=== PATIENT | female | born 1990 | race African-American/Black ===

== ENCOUNTER 2023-04-20 13:30 | Emergency (ER) | payer OTHER ==
[~2023-04-20] VITALS: Ht 170.2 cm; Wt 65.2 kg
[2023-04-20 13:31] VITALS: BP 117/74; TEMP 97.9; O2SAT 100
== END 2023-04-20 15:53 | disposition home or self-care (01) ==
LOC: M ED 13:30
DX: O26.891 Other specified pregnancy related conditions, first trimester (principal); R09.81 Nasal congestion; Z3A.00 Weeks of gestation of pregnancy not specified

== ENCOUNTER 2023-05-12 13:53 | Emergency (ER) | payer OTHER ==
[~2023-05-12] VITALS: Ht 170.2 cm; Wt 63.3 kg
[2023-05-12 15:08] LABS: HEMATOCRIT 33.3 % (36.0-47.0); HEMOGLOBIN 10.7 g/dl (12.0-15.5); MEAN CORPUSCULAR HEMOGLOBIN 26.3 pg (27.0-33.0); MEAN CORPUSCULAR HGB CONC 32.1 g/dl (32.0-36.5); MEAN CORPUSCULAR VOLUME 81.8 fl (80.0-96.0); PLATELET COUNT, AUTOMATED 245 10^3/uL (150-450); RED BLOOD COUNT 4.07 10^6/uL (4.00-5.40); WHITE BLOOD COUNT 4.7 10^3/uL (4.0-10.0)
[2023-05-12 15:17] LABS: APPEARANCE, URINE CLEAR (CLEAR); BACTERIA, URINE AUTO NEGATIVE (NEGATIVE); BILIRUBIN, URINE AUTO NEGATIVE (NEGATIVE); BLOOD, URINE BLOOD 1+ (NEGATIVE); COLOR, URINE YELLOW (YELLOW); GLUCOSE, URINE (UA) AUTO NEGATIVE (NEGATIVE); KETONE, URINE AUTO NEGATIVE (NEGATIVE); LEUKOCYTE ESTERASE, URINE AUTO NEGATIVE (NEGATIVE); MUCUS, URINE SMALL (NEGATIVE); NITRITE, URINE AUTO NEGATIVE (NEGATIVE); PROTEIN, URINE AUTO NEGATIVE (NEGATIVE); RBC, URINE AUTO 1 /HPF (0-3); SPECIFIC GRAVITY URINE AUTO 1.023 (1.002-1.035); SQUAMOUS EPITHELIAL CELL UR AU 2 /HPF (0-6); UROBILINOGEN, URINE AUTO 0.2 mg/dL (0.0-2.0); WBC, URINE AUTO 1 /HPF (0-3)
[2023-05-12 15:34] LABS: ATYPICAL LYMPH 2 % (0-5); LYMPHOCYTES 37 % (16-44); MONOCYTES 7 % (0-5); NEUTROPHILS 54 % (28-66)
[2023-05-12 15:36] LABS: PLATELET ESTIMATE NORMAL (NORMAL)
[2023-05-12 15:41] LABS: BLOOD UREA NITROGEN 5 MG/DL (9-23); CALCIUM LEVEL 8.8 MG/DL (8.5-10.1); CARBON DIOXIDE LEVEL 22 MMOL/L (20-31); CHLORIDE LEVEL 107 MMOL/L (98-107); CREATININE FOR GFR 0.62 MG/DL (0.55-1.30); GLOMERULAR FILTRATION RATE > 60.0 (>60); GLUCOSE, FASTING 81 MG/DL (60-100); POTASSIUM SERUM 3.8 MMOL/L (3.5-5.1); SODIUM LEVEL 139 MMOL/L (136-145)
[2023-05-12 19:58] LABS: Trichomonas vaginalis (AMP) NOT DETECTED (NEGATIVE)
[2023-05-12 20:05] VITALS: BP 134/79; TEMP 99.1; O2SAT 100
[2023-05-12 20:21] LABS: GC DNA AMPLIFICATION NEGATIVE (NEGATIVE)
== END 2023-05-12 20:06 | disposition home or self-care (01) ==
LOC: M ED 15:25
DX: O20.0 Threatened abortion (principal)

== ENCOUNTER 2023-09-25 16:35 | Outpatient (CLI) | payer OTHER ==
[~2023-09-25] VITALS: Ht 167.6 cm; Wt 76.2 kg
[2023-09-25 17:00] VITALS: BP 112/57; O2SAT 100
[2023-09-25] MEDS ORDERED: PRENTAB9 PO (17:25)
[2023-09-25] MEDS ORDERED: ACET500P3 PO (17:25)
[2023-09-25] MEDS ORDERED: HOME MED LIST COMPLETE! XX SCH (17:25)
[2023-09-25] MEDS ORDERED: diphenhydrAMINE 50MG/ML VIAL IM ONE (17:45)
[2023-09-25] MEDS ORDERED: LACTATED RINGER'S 1000 ML IV STA (17:45)
[2023-09-25] MEDS: LR 1,000 ML IV SCH (18:19)
[2023-09-25] MEDS: PROMETHAZINE 25MG/ML 1ML VIAL IV ONE (18:20)
[2023-09-25] MEDS: diphenhydrAMINE 50MG/ML VIAL IV ONE (18:28)
[2023-09-25 18:37] VITALS: BP 101/52
[2023-09-25 20:06] VITALS: BP 114/55
== END 2023-09-25 21:51 | disposition home or self-care (01) ==
LOC: M LDO 16:35
PROVIDERS: ATTEND Obstetrics & Gynecology
DX: O26.892 Other specified pregnancy related conditions, second trimester (principal); R51.9 Headache, unspecified; Z3A.27 27 weeks gestation of pregnancy
CPT/HCPCS: 59025; 96374; 96375; G0463; J1200; J2550

== ENCOUNTER 2023-11-28 20:43 | Outpatient (CLI) | payer OTHER ==
[~2023-11-28] VITALS: Ht 172.7 cm; Wt 80.5 kg
[~2023-11-28 20:43] MED LIST: ACET500P3 PO; PRENTAB9 PO
[2023-11-28 20:58] VITALS: BP 107/62
[2023-11-28] MEDS: FLUCONAZOLE 50MG TABLET PO ONE (22:21)
[2023-12-01] MEDS ORDERED: FLUCONAZOLE 50MG TABLET PO ONE (22:00)
== END 2023-11-28 23:00 | disposition home or self-care (01) ==
LOC: M LDO 20:43
PROVIDERS: ATTEND Obstetrics & Gynecology
DX: O23.593 Infection of other part of genital tract in pregnancy, third trimester (principal); O99.820 Streptococcus B carrier state complicating pregnancy; B37.9 Candidiasis, unspecified; Z3A.35 35 weeks gestation of pregnancy
CPT/HCPCS: 59025; 81001; 87086; G0463

== ENCOUNTER 2023-12-28 01:22 | Inpatient (IN) | payer OTHER ==
[~2023-12-28] VITALS: Ht 170.2 cm; Wt 81.0 kg
[2023-12-28] VITALS (13 sets, daily range): BP systolic 109–131; BP diastolic 53–72; O2SAT 100
[2023-12-28] MEDS: PENICILLIN G POTASSIUM 5 MU IV 5 MU in DEXTROSE 5% (D5W) MINI-BAG PLU 100 ML IV STA (01:46)
[2023-12-28 01:58] LABS: HEMATOCRIT 37.6 % (36.0-47.0); HEMOGLOBIN 12.7 g/dl (12.0-15.5); MEAN CORPUSCULAR HEMOGLOBIN 29.5 pg (27.0-33.0); MEAN CORPUSCULAR HGB CONC 33.8 g/dl (32.0-36.5); MEAN CORPUSCULAR VOLUME 87.2 fl (80.0-96.0); PLATELET COUNT, AUTOMATED 203 10^3/uL (150-450); RED BLOOD COUNT 4.31 10^6/uL (4.00-5.40)
[2023-12-28] MEDS ORDERED: HOME MED LIST COMPLETE! XX SCH (02:05)
[2023-12-28] MEDS ORDERED: ePHEDrine SULFATE 25 MG/5 ML(5MG/ML) SYRINGE IVP PRN (02:55)
[2023-12-28] MEDS ORDERED: FENTANYL/ROPIVACAINE/NACL BAG 100 ML EPIDURAL SCH (02:55)
[2023-12-28] MEDS ORDERED: NALOXONE INJ 0.4MG/1ML VIAL IV PRN (02:55)
[2023-12-28] MEDS ORDERED: EPIDURAL/PCA KEYS XX PRN (02:55)
[2023-12-28] MEDS ORDERED: ONDANSETRON 4MG 2ML VIAL IV PRN (02:55)
[2023-12-28] MEDS ORDERED: diphenhydrAMINE 50MG/ML VIAL IV PRN (02:55)
[2023-12-28] MEDS ORDERED: LR 500 ML IV PRN (02:55)
[2023-12-28 03:42] LABS: HEPATITIS C VIRUS ABY INDEX < 0.02 INDEX (<0.8)
[2023-12-28] MEDS: OXYTOCIN DRIP 30 UNITS in IV 1 EA IV PRN (03:44)
[2023-12-28] MEDS ORDERED: MOM 30ML SUSPENSION UDC PO PRN (03:50)
[2023-12-28] MEDS ORDERED: RHOGAM 300MCG (1500IU) INJ IM SCH (03:50)
[2023-12-28] MEDS ORDERED: IBUPROFEN 600MG TAB PO PRN (03:50)
[2023-12-28] MEDS ORDERED: METHYLERGONOVINE MALEATE 0.2MG/ML 1ML VIAL IM PRN (03:50)
[2023-12-28] MEDS ORDERED: ANUSOL HC CREAM 30GM TOP PRN (03:50)
[2023-12-28] MEDS ORDERED: ACETAMINOPHEN 325 MG TAB PO PRN (03:50)
[2023-12-28] MEDS ORDERED: DIBUCAINE 1% OINTMENT 30GM TOP PRN (03:50)
[2023-12-28] MEDS ORDERED: DOCUSATE SODIUM 100MG CAPSULE PO PRN (03:50)
[2023-12-28] MEDS: METHYLERGONOVINE MALEATE 0.2MG/ML 1ML VIAL IM PRN (04:09)
[2023-12-28] MEDS: OXYTOCIN DRIP 30 UNITS in IV 1 EA IV SCH ×2 (04:40→04:57)
[2023-12-28] MEDS: TRANEXAMIC ACID INJection 1,000 MG in NS 100 ML IV PRN (04:57)
[2023-12-28] MEDS ORDERED: PEN G POT 3,000,000 UNIT/50 ML 3,000,000 UNIT in IV 1 EA IV SCH (06:00)
[2023-12-28] MEDS: IBUPROFEN 800 MG TAB PO PRN (06:04)
[2023-12-28] MEDS: CALCIUM CARBONATE 500 MG CHEW U/D PO PRN (06:22)
[2023-12-28] MEDS: METHYLERGONOVINE MALEATE 0.2 MG TAB PO SCH (06:22)
[2023-12-28] MEDS: ACETAMINOPHEN 500 MG TAB PO PRN (08:48)
[2023-12-28] MEDS: PRENATAL VITAMINS CHEWABLE TABLET PO SCH (11:05)
[2023-12-28] MEDS: METHYLERGONOVINE MALEATE 0.2 MG TAB PO ONE (14:25)
[2023-12-29 05:59] VITALS: BP 95/50; O2SAT 100
[2023-12-29 18:00] VITALS: BP 121/57; O2SAT 100
[2023-12-30 06:00] VITALS: BP 109/56; O2SAT 100
[2023-12-30] MEDS ORDERED: MEASLES,MUMPS,RUBELLA VACCINE INJ (MMR-II) SC.IMMUN ONE (09:00)
[2023-12-30] MEDS: FLUZONE VACCINE TRIVALENT PF(2024-25) 0.5ML SYRINGE IM.IMMUN ONE (09:32)
[2023-12-30] MEDS: BOOSTRIX VACCINE (TETANUS/DIPHTH/ACEL. PERTUSSIS) 0.5ML SYR IM.IMMUN ONE (09:33)
== END 2023-12-30 11:25 | disposition home or self-care (01) | DRG 807 ==
LOC: M LDO 01:22 → M LDI 01:23 → M OBS 10:41
PROVIDERS: ADMIT Obstetrics & Gynecology; ATTEND Obstetrics & Gynecology
PROC: 10E0XZZ Delivery of Products of Conception, External Approach (ICD-10-PCS; principal; 2023-12-28)
DX: O80 Encounter for full-term uncomplicated delivery (principal); Z37.0 Single live birth; Z3A.39 39 weeks gestation of pregnancy